=== PATIENT | male | born 1995 | race Caucasian/White ===

== ENCOUNTER 2023-04-27 20:22 | Emergency (ER) | payer MEDICAID ==
[~2023-04-27] VITALS: Ht 185.4 cm; Wt 122.5 kg
[2023-04-27 20:38] VITALS: BP 144/76; PULSE 69; RESP 18; TEMP 98.6; O2SAT 97
[2023-04-27] MEDS: KETOROLAC 30 MG/ML VIAL IM ONE (23:27)
== END 2023-04-27 23:29 | disposition home or self-care (01) ==
LOC: MED 20:22
DX: S83.8X2A Sprain of other specified parts of left knee, initial encounter (principal); Z79.899 Other long term (current) drug therapy; X58.XXXA Exposure to other specified factors, initial encounter; Y93.89 Activity, other specified; Y92.89 Other specified places as the place of occurrence of the external cause; Y99.8 Other external cause status
CPT/HCPCS: 29505; 73562; 96372; 99283; J1885